=== PATIENT | male | born 1935 | race Caucasian/White ===

== ENCOUNTER 2017-01-26 21:50 | Emergency (ER) | payer MEDICARE, OTHER ==
[~2017-01-26] VITALS: Ht 180.3 cm; Wt 82.6 kg
[2017-01-26] MEDS ORDERED: LISI-552 (22:02)
[2017-01-26] MEDS ORDERED: ATOR10TA66 (22:02)
--- NOTE | 2017-01-26 22:25 | ED GU-Male ---
General Chief Complaint: -Male Stated Complaint: URINARY PROBLEMS Nursing Triage Note: hesitancy/dribbling Source: patient Exam Limitations: no limitations History of Present Illness Time seen by provider: 22:23 Initial Comments To ER with reports of sensation of a full bladder but that he is only able to dribble small short streams of urine. He denies any fevers or chills or flank pain. He's never had this problem before. The symptoms began this morning. Timing/Duration: this morning Severity/Quality: moderate Location: suprapubic Activities at Onset: none Allergies and Home Medications Allergies Coded Allergies: No Known Drug Allergies (Unverified , 01/26/17) Home Medications Atorvastatin Calcium 10 Mg Tablet, #90 (Reported) Lisinopril 20 Mg Tablet, #180 (Reported) Constitutional: see HPI, No chills, No fever EENTM: see HPI Respiratory: no symptoms reported Cardiovascular: no symptoms reported Genitourinary: no symptoms reported Musculoskeletal: no symptoms reported Skin: no symptoms reported Psychiatric/Neurological: No Symptoms Reported Endocrine: No Symptoms Reported Past Qhvpdyy-Hktoig-Snpyth Hx Patient Social History Alcohol Use: Denies Use Recreational Drug Use: No Smoking Status: Never a Smoker 2nd Hand Smoke Exposure: No Recent Foreign Travel: No Contact w/Someone Who Travel: No Recent Infectious Disease Expo: No Recent Hopitalizations: No Immunizations Up To Date Tetanus Booster (TDap): Unknown Seasonal Allergies Seasonal Allergies: No Surgeries Surgeries: Orthopedic Cardiovascular Cardiac Disorders: High Cholesterol, Hypertension Musculoskeletal Musculoskeletal Disorders: Chronic Back Pain Physical Exam Vital Signs Vital Sign - Last 12Hours 01/26/17 22:00 Temp 98.5 Pulse 77 Resp 18 B/P (MAP) 169/87 Pulse Ox 98 O2 Delivery Room Air Capillary Refill : Less Than 3 Seconds General Appearance: WD/WN, no apparent distress HEENT: PERRL/EOMI, normal ENT inspection Neck: non-tender, full range of motion Respiratory: no respiratory distress, no accessory muscle use Gastrointestinal: normal bowel sounds, soft, tenderness Extremities: normal range of motion, non-tender Neurologic/Psychiatric: alert, normal mood/affect, oriented x 3 Skin: normal color, warm/dry Progress/Results/Core Measures Results/Orders Lab Results Laboratory Tests Test 01/26/17 21:18 01/26/17 22:30 Range/Units Urine Color YELLOW Urine Clarity CLEAR Urine pH 5 5-9 Urine Specific [place] 1.015 L 1.016-1.022 Urine Protein NEGATIVE NEGATIVE Urine Glucose (UA) NEGATIVE NEGATIVE Urine Ketones NEGATIVE NEGATIVE Urine Nitrite NEGATIVE NEGATIVE Urine Bilirubin NEGATIVE NEGATIVE Urine Urobilinogen NORMAL NORMAL MG/DL Urine Leukocyte Esterase NEGATIVE NEGATIVE Urine RBC (Auto) NEGATIVE NEGATIVE Urine RBC NONE /HPF Urine WBC RARE /HPF Urine Crystals NONE /LPF Urine Bacteria NEGATIVE /HPF Urine Casts NONE /LPF Urine Mucus NEGATIVE /LPF Urine Culture Indicated NO My Orders Orders - SHAVONNE WESTBROOK APRN Cbc With Automated Diff (01/26/17 22:22) Basic Metabolic Panel (01/26/17 22:22) Ua Culture If Indicated (01/26/17 22:22) Montez Cath Insertion (01/26/17 22:22) Vital Signs/I&O Vital Sign - Last 12Hours 01/26/17 22:00 Temp 98.5 Pulse 77 Resp 18 B/P (MAP) 169/87 Pulse Ox 98 O2 Delivery Room Air Blood Pressure Mean: 114 Departure Impression Impression: Primary Impression: Bladder outlet obstruction Disposition: 01 HOME, SELF-CARE Condition: Stable Departure-Patient Inst. Decision time for Depature: 22:42 Referrals: JOE BELLO DO (PCP) Primary Care Physician JELLY PECK MD Patient Instructions: NO INSTRUCTIONS GIVEN Add. Discharge Instructions: 1. Return to ER for any concerns 2. Follow-up with your doctor next week. Also, call Dr. Peck on Saturday morning to make an appointment to be seen. During that appointment he may choose to remove your Montez catheter. If he does not, you may also follow-up with regular physician, Dr. Bello who may remove your Montez catheter next week. All discharge instructions reviewed with patient and/or family. Voiced understanding. Scripts Ciprofloxacin HCl (Cipro) 500 Mg Tablet 500 MG PO BID, #10 TAB Prov: SHAVONNE WESTBROOK APRN 01/26/17 Tamsulosin HCl (Flomax) 0.4 Mg Cap 0.4 MG PO DAILY, #20 CAP Prov: SHAVONNE WESTBROOK APRN 01/26/17 Copy Copies To 1: JOE BELLO DO; JELLY PECK MD, PETER J APRN Jan 26, 2017 22:25
[2017-01-26 22:27] LABS: BILIRUBIN,URINE NEGATIVE (NEGATIVE); KETONES,URINE NEGATIVE (NEGATIVE); LEUKOCYTE ESTERASE ,URINE NEGATIVE (NEGATIVE); NITRITE,URINE NEGATIVE (NEGATIVE); PH,URINE 5 (5-9); PROTEIN,URINE NEGATIVE (NEGATIVE); UROBILINOGEN,URINE NORMAL (NORMAL)
[2017-01-26 22:36] LABS: WBC,URINE RARE /HPF
[2017-01-26 22:40] LABS: BASOPHILS % (AUTO) 0 % (0-10); EOSINOPHILS # (AUTO) 0.1 10^3/uL (0.0-0.3); EOSINOPHILS % (AUTO) 1 % (0-10); LYMPHOCYTES # (AUTO) 1.7 X 10^3 (1.0-4.0); LYMPHOCYTES % (AUTO) 20 % (12-44); MEAN CORPUSCULAR HEMOGLOBIN 31 PG (25-34); MEAN CORPUSCULAR HGB CONC 35 G/DL (32-36); MEAN CORPUSCULAR VOLUME 90 FL (80-99); MEAN PLATELET VOLUME 10.1 FL (7.4-10.4); MONOCYTES # (AUTO) 0.7 X 10^3 (0.0-1.0); MONOCYTES % (AUTO) 9 % (0-12); NEUTROPHILS # (AUTO) 5.8 X 10^3 (1.8-7.8); NEUTROPHILS % (AUTO) 70 % (42-75); PLATELET COUNT 170 10^3/uL (130-400); RED BLOOD COUNT 4.32 10^6/uL (4.35-5.85); RED CELL DISTRIBUTION WIDTH 13.3 % (10.0-14.5); WHITE BLOOD COUNT 8.3 10^3/uL (4.3-11.0)
[2017-01-26] MEDS ORDERED: CIPR-225 PO (22:43)
[2017-01-26] MEDS ORDERED: TAMS0.4C98 PO (22:43)
[2017-01-26 23:02] LABS: ANION GAP 11 MMOL/L (5-14); BLOOD UREA NITROGEN 19 MG/DL (7-18); BUN/CREATININE RATIO 17 (0-20); CALCIUM 9.1 MG/DL (8.5-10.1); CARBON DIOXIDE 22 MMOL/L (21-32); CHLORIDE 107 MMOL/L (98-107); CREATININE SERUM 1.12 MG/DL (0.60-1.30); GFR ESTIMATED > 60; GLUCOSE 113 MG/DL (70-105); HEMOLYSIS 9 (-100-29); ICTERUS 0.7 (-100-1.9); LIPEMIA 3 (-100-49); POTASSIUM 4.3 MMOL/L (3.6-5.0); SODIUM 140 MMOL/L (135-145)
[2017-01-26 23:15] VITALS: BP 152/78
[2017-01-27] MEDS ORDERED: HYOS0.1283 SL (17:13)
--- OUTSIDE RECORDS SUMMARY | 2017-01-28 17:35 | XMS REPORT | Continuity of Care Document ---
Author Author [facility] Organization [facility] Address Unknown Phone Unavailable Allergies Medications Problems Procedures Results Encounters ACCT No. Visit Date/Time Discharge Status Pt. Type Provider Facility Loc./Unit Complaint [id number] 04/30/2013 12:29:00 2012 23:59:59 [facility] Outpatient [id number] 12/31/2012 09:00:00 2012 23:59:59 CLS Outpatient
== END 2017-01-26 23:18 | disposition home or self-care (01) ==
LOC: EDUNIT# 21:50 → ER 21:51
DX: N32.0 Bladder-neck obstruction (principal); I10 Essential (primary) hypertension; E78.00 Pure hypercholesterolemia, unspecified
CPT/HCPCS: 36415; 51702; 80048; 81000; 85025

== ENCOUNTER 2017-01-27 14:44 | Emergency (ER) | payer MEDICARE, OTHER ==
[~2017-01-27] VITALS: Ht 180.3 cm; Wt 81.6 kg
[~2017-01-27 14:44] MED LIST: ATOR10TA66; CIPR-225 PO; LISI-552; TAMS0.4C98 PO
[2017-01-27] MEDS ORDERED: LIDOCAINE UROJET 2% GEL 10 ML PKG TOP ONE (16:00)
--- NOTE | 2017-01-27 16:13 | ED GU-Male ---
General Chief Complaint: -Male Stated Complaint: BLOOD IN CATHETER Nursing Triage Note: AMB TO ED HAD MENDIOLA PLACED IN ED YESTERDAY MENDIOLA HAS BEEN UNCOMFORTABLE SINCE PLACEMENT HAVING BURNING. TODAY NOTICED BLOOD IN URNE. Source: patient Exam Limitations: no limitations History of Present Illness Time seen by provider: 15:50 Initial Comments This patient presents to the emergency room with Mendiola catheter complications. He presented yesterday with urinary obstruction and the Mendiola catheter was placed. There were no complications with the catheter insertion and his UA was unremarkable. Over the last 24 hours he reports developing burning. He states that catheter does not seem to drain continuously. He feels his bladder filling and then he strains or applies pressure with his hands to get his bladder to drain through the Mendiola. When he does this there is a burning sensation and urine also leaks from around the catheter. His urine and present is dark and he believes there is blood in it. Allergies and Home Medications Allergies Coded Allergies: No Known Drug Allergies (Unverified , 01/26/17) Home Medications Atorvastatin Calcium 10 Mg Tablet, #90 (Reported) Ciprofloxacin HCl 500 Mg Tablet, 500 MG PO BID, #10 Prescribed by: SHAVONNE WESTBROOK on 01/26/17 2243 Hyoscyamine Sulfate 0.125 Mg Tab.subl, 0.125 MG SL Q4H PRN for SPASMS, #10 Prescribed by: JOHANNA ARNOLD on 01/27/17 1713 Lisinopril 20 Mg Tablet, #180 (Reported) Tamsulosin HCl 0.4 Mg Cap, 0.4 MG PO DAILY, #20 Prescribed by: SHAVONNE WESTBROOK on 01/26/17 2243 Constitutional: no symptoms reported Gastrointestinal: no symptoms reported Genitourinary: see HPI Psychiatric/Neurological: No Symptoms Reported Past Odzemny-Jgbqmi-Ziiojb Hx Patient Social History Alcohol Use: Denies Use Recreational Drug Use: No Smoking Status: Never a Smoker 2nd Hand Smoke Exposure: No Recent Foreign Travel: No Contact w/Someone Who Travel: No Recent Infectious Disease Expo: No Recent Hopitalizations: No Immunizations Up To Date Tetanus Booster (TDap): Unknown Seasonal Allergies Seasonal Allergies: No Surgeries HX Surgeries: Yes Surgeries: Orthopedic Respiratory Hx Respiratory Disorders: No Cardiovascular Hx Cardiac Disorders: Yes Cardiac Disorders: High Cholesterol, Hypertension Neurological Hx Neurological Disorders: No Genitourinary Hx Genitourinary Disorders: Yes (urinary obstruction) Gastrointestinal Hx Gastrointestinal Disorders: No Musculoskeletal Hx Musculoskeletal Disorders: Yes Musculoskeletal Disorders: Chronic Back Pain Endocrine Hx Endocrine Disorders: No HEENT HX ENT Disorders: No Cancer Hx Cancer: No Psychosocial Hx Psychiatric Problems: No Physical Exam Vital Signs Vital Sign - Last 12Hours 01/27/17 01/27/17 15:09 17:38 Temp 99.0 Pulse 98 Resp 18 B/P (MAP) 153/98 Pulse Ox 98 Capillary Refill : Less Than 3 Seconds General Appearance: WD/WN, no apparent distress Gastrointestinal: non tender, soft Male: normal genitalia, No erythema Genital/Rectal: normal genital exam, other (Bloody urine noted in the Mendiola catheter tubing and bag) 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, no motor/sensory deficits, alert, normal mood/affect, oriented x 3 Skin: normal color, warm/dry Progress/Results/Core Measures Results/Orders Lab Results Laboratory Tests Test 01/27/17 16:10 Range/Units Urine Color OTHER H Urine Clarity VERY CLOUDY H Urine pH 7 5-9 Urine Specific [place] 1.010 L 1.016-1.022 Urine Protein 3+ H NEGATIVE Urine Glucose (UA) NEGATIVE NEGATIVE Urine Ketones NEGATIVE NEGATIVE Urine Nitrite NEGATIVE NEGATIVE Urine Bilirubin NEGATIVE NEGATIVE Urine Urobilinogen NORMAL NORMAL MG/DL Urine Leukocyte Esterase 3+ H NEGATIVE Urine RBC (Auto) 5+ H NEGATIVE Urine RBC TNTC H /HPF Urine WBC 10-25 H /HPF Urine Squamous Epithelial Cells NONE /HPF Urine Crystals NONE /LPF Urine Bacteria NEGATIVE /HPF Urine Casts NONE /LPF Urine Mucus NEGATIVE /LPF Urine Culture Indicated YES Micro Results Microbiology 01/27/17 Urine Culture - Preliminary, Resulted NO GROWTH My Orders Orders - JOHANNA GLOVER MD Ua Culture If Indicated (01/27/17 15:50) Lidocaine 2% (Urojet) (Xylocaine Urojet) (01/27/17 16:00) Urine Culture (01/27/17 16:10) Ciprofloxacin Tablet (Cipro Tablet) (01/27/17 17:15) Medications Given in ED Vital Signs/I&O Vital Sign - Last 12Hours 01/27/17 01/27/17 15:09 17:38 Temp 99.0 99.0 Pulse 98 98 Resp 18 18 B/P (MAP) 153/98 Pulse Ox 98 Blood Pressure Mean: 116 Progress Note #1: Progress Note The cause of his pain and hematuria is uncertain. Mendiola catheter was replaced to see if repositioning with a new catheter resolves the problem. Progress Note #2: Progress Note Mendiola catheter was replaced. Patient was pretreated with Urojet. Patient felt much better after replacement of catheter. His urine cleared of blood after replacement. He did not think he could get to the pharmacy to fill his Cipro prescription before pharmacy closes. A dose of Cipro was given in the ER. Departure Impression Impression: Primary Impression: Urinary obstruction Additional Impression: Hematuria Disposition: HOME, SELF-CARE Condition: Improved Departure-Patient Inst. Decision time for Depature: 17:00 Referrals: JOE JORDAN DO (PCP/Family) Primary Care Physician JELLY PECK MD Patient Instructions: Urinary Obstruction Add. Discharge Instructions: Continue taking Flomax as previously prescribed. Finish the Cipro as prescribed as well. If you have more cramping and pain tomorrow, try the Levsin as prescribed. Follow-up with a urologist such as Dr. Peck as soon as possible. Return to the ER if you have any further complications before you're able to see the urologist. All discharge instructions reviewed with patient and/or family. Voiced understanding. Scripts Hyoscyamine Sulfate (Levsin-Sl) 0.125 Mg Tab.subl 0.125 MG SL Q4H Y for SPASMS, #10 TAB Prov: JOHANNA GLOVER MD 01/27/17 JOHANNA GLOVER MD Jan 27, 2017 16:13
[2017-01-27 16:17] LABS: BILIRUBIN,URINE NEGATIVE (NEGATIVE); KETONES,URINE NEGATIVE (NEGATIVE); LEUKOCYTE ESTERASE ,URINE 3+ (NEGATIVE); NITRITE,URINE NEGATIVE (NEGATIVE); PH,URINE 7 (5-9); PROTEIN,URINE 3+ (NEGATIVE); UROBILINOGEN,URINE NORMAL (NORMAL)
[2017-01-27] MEDS ORDERED: HYOS0.1283 SL (17:13)
[2017-01-27] MEDS ORDERED: CIPROFLOXACIN 500 MG (CIPRO) TABLET PO ONE (17:15)
[2017-01-27 17:38] VITALS: BP 153/98
--- OUTSIDE RECORDS SUMMARY | 2017-01-28 18:35 | XMS REPORT | Continuity of Care Document ---
Author Author [facility] Organization [facility] Address Unknown Phone Unavailable Allergies Medications Problems Procedures Results Encounters ACCT No. Visit Date/Time Discharge Status Pt. Type Provider Facility Loc./Unit Complaint [id number] 04/30/2013 12:29:00 2012 23:59:59 C[facility] Outpatient [id number] 12/31/2012 09:00:00 2012 23:59:59 CLS Outpatient
== END 2017-01-27 17:36 | disposition home or self-care (01) ==
LOC: EDUNIT# 14:44 → ER 14:45
DX: Z46.6 Encounter for fitting and adjustment of urinary device (principal); N13.9 Obstructive and reflux uropathy, unspecified; R31.9 Hematuria, unspecified
CPT/HCPCS: 51702; 81000; 87088